=== PATIENT | female | born 1995 | race Caucasian/White ===

== ENCOUNTER 2019-07-24 13:53 | Emergency (ER) | payer OTHER, MEDICAID, SELFPAY ==
[2019-07-24 13:59] VITALS: BP 140/96; PULSE 83; RESP 12; TEMP 36.4; O2SAT 99
--- NOTE | 2019-07-24 14:53 | ED_ITS ---
HPI - Headache <ELIZABETH Kaiser - Last Filed: 07/24/19 21:05> General Chief Complaint: Headache Stated Complaint: migraine/nausea&vomiting/chills x1 days Time Seen by Provider: 07/24/19 14:32 Mode of arrival: Ambulatory Limitations: no limitations History of Present Illness HPI Narrative: 23-year-old female with a history of migraines, presents to the emergency department today complaining of a left sided 8/10 throbbing migraine that started last night. She states she has taken Tylenol and ibuprofen at home, her last dose of medication was last night. She states she has been on migraine medication for management but has discontinued them due to side effects. She has been to the ER 3 times for severe migraines, and states this feels the same. Patient also reports photophobia, nausea, and occasional blurry vision. She denies any chest pain, shortness of breath, nasal congestion, sore throat, ear pain, vomiting, diarrhea, fevers, or neck pain. Related Data Previous Rx's Medication Instructions Recorded metoclopramide HCl [Reglan] 10 mg PO DAILY PRN #5 tab 07/24/19 Allergies Allergy/AdvReac Type Severity Reaction Status Date / Time ketorolac [From Toradol] AdvReac Unknown Verified 07/24/19 14:02 Review of Systems <ELIZABETH Kaiser - Last Filed: 07/24/19 21:05> Review of Systems Narrative: REVIEW OF SYSTEMS: GENERAL: Denies fever or chills. HENT: Patient reports headache, see HPI. EYES: No loss of vision, double vision, eye pain, or irritation. Patient reports photophobia, see HPI. CARDIOVASCULAR: No chest pain or syncope. RESPIRATORY: No shortness of breath or cough. GASTROINTESTINAL: No nausea, vomiting, diarrhea, or constipation. GENITOURINARY: No flank pain or dysuria. MUSCULOSKELETAL: No pain, weakness, or deformities. INTEGUMENTARY: No rash, lesions, or pruritus. NEURO: No numbness, tingling, memory loss, or confusion. PSYCH: No behavior or mood changes. Patient History <ELIZABETH Kaiser - Last Filed: 07/24/19 21:05> Medical/Surgical History Medical History Migraine (Acute) Social History Smoking Status: Former smoker Family/Social History Social History Smoking Status: Former smoker alcohol intake frequency: 0-2 drinks per day Substance Use Type: marijuana Exam <ELIZABETH Kaiser - Last Filed: 07/24/19 21:05> Initial Vital Signs Initial Vital Signs: Vital Signs Temperature 97.6 F 07/24/19 13:59 Pulse Rate 83 07/24/19 13:59 Respiratory Rate 12 07/24/19 13:59 Blood Pressure 140/96 H 07/24/19 13:59 Pulse Oximetry 99 07/24/19 13:59 PHYSICAL EXAMINATION: GENERAL: Well groomed, alert, and cooperative. Answers questions promptly and appropriately. Vital signs noted. HENT: Normocephalic, atraumatic. Ear canals patent. Oral mucosa is pink and moist. EYES: PERRLA, EOMIs, Conjunctiva pink, sclera white, no periorbital swelling. Patient withdrawals from like, indicating photophobia. CHEST: Normal to inspection and without deformities. CARDIOVASCULAR: S1 and S2 sounds normal. Regular rate and rhythm, no murmurs, clicks, or bruits. No pedal edema. RESPIRATORY: Normal respiratory rate, trachea midline, airway patent. No stridor, nasal flaring or accessory muscle use. Lungs are clear in all wang without wheeze, rhonchi, or crackles. GASTROINTESTINAL: Bowel sounds normoactive. Abdomen is soft and non-tender. No organomegaly. MUSCULOSKELETAL: Normal gait and coordination. Equal tone and mass bilaterally. EXTREMITIES: CMS intact. Moves all extremities. SKIN: Warm, dry, soft, appropriate color for ethnicity. No lesions, rashes, or wounds. NEURO: Alert and Oriented X 3. CN III-XIII grossly intact. Good coordination. No ataxia, or sensory deficits, or cognitive issues. PSYCH: Appropriate affect and mood. <Dale Otoole DO - Last Filed: 07/25/19 06:59> Initial Vital Signs Initial Vital Signs: Vital Signs Temperature 97.6 F 07/24/19 13:59 Pulse Rate 83 07/24/19 13:59 Respiratory Rate 12 07/24/19 13:59 Blood Pressure 140/96 H 07/24/19 13:59 Pulse Oximetry 99 07/24/19 13:59 Course <ELIZABETH Kaiser - Last Filed: 07/24/19 21:05> Course Course Narrative: Patient was given Toradol per request, patient states she feels ?hit by a bus ?when she gets Toradol but states it helps her headache and she would like a dose. She denies any hives or throat swelling with administration of Toradol. After Toradol and Reglan, patient states she was feeling much better and would like to go home. She was seen up walking around the room without significant signs of pain. Orders Ordered: Discontinued Medications Ketorolac Tromethamine (Toradol) 30 mg IM NOW ONE Stop: 07/24/19 14:54 Last Admin: 07/24/19 15:06 Dose: 30 mg Documented by: MULUGETA Metoclopramide HCl (Reglan) 10 mg PO NOW ONE Stop: 07/24/19 14:54 Last Admin: 07/24/19 15:06 Dose: 10 mg Documented by: MULUGETA Vital Signs Vital signs: Vital Signs - 8 hr 07/24/19 13:59 07/24/19 15:40 07/24/19 16:11 Temperature 97.6 F Pulse Rate 83 72 77 Respiratory Rate 12 18 16 Blood Pressure 140/96 H 126/81 Blood Pressure [Left Wrist] 132/91 H Pulse Oximetry 99 99 97 <Dale Otoole DO - Last Filed: 07/25/19 06:59> Orders Ordered: Discontinued Medications Ketorolac Tromethamine (Toradol) 30 mg IM NOW ONE Stop: 07/24/19 14:54 Last Admin: 07/24/19 15:06 Dose: 30 mg Documented by: MULUGETA Metoclopramide HCl (Reglan) 10 mg PO NOW ONE Stop: 07/24/19 14:54 Last Admin: 07/24/19 15:06 Dose: 10 mg Documented by: MULUGETA Vital Signs Vital signs: Vital Signs - 8 hr 07/24/19 13:59 07/24/19 15:40 07/24/19 16:11 Temperature 97.6 F Pulse Rate 83 72 77 Respiratory Rate 12 18 16 Blood Pressure 140/96 H 126/81 Blood Pressure [Left Wrist] 132/91 H Pulse Oximetry 99 99 97 MDM - Headache <ELIZABETH Kaiser - Last Filed: 07/24/19 21:05> Medical Records Attestation: I reviewed the patient's medical records. Lab Data Attestation: I reviewed the patient's lab results. MDM Narrative Medical decision making narrative: Exam and history consistent with migraine (patient has a history of migraines, symptoms resolve with administration of me dication, she exhibits photophobia and phonophobia). Less likely cranial hemorrhage or brain tumor due to resolution of symptoms, normal neurological exam, and history of migraines. Patient was encouraged to follow up with her primary care provider in the next few weeks for discussion of migraine management. Strict return precautions were given. Discharge Plan Departure Patient Disposition: Home Clinical Impression: Headache Qualifiers: Headache type: unspecified Headache chronicity pattern: acute headache Intractability: not intractable Qualified Code(s): R51 - Headache Discharge Date/Time: 07/24/19 16:13 Instructions: DI for Headache Activity Restrictions/Additional Instructions: Thank you for entrusting me with your care today. As discussed, please follow up with your primary care provider for further treatment and management of your migraines. I have given you a prescription for Reglan, this can help nausea as well as her headaches. You may take Benadryl with this if needed. Return emergency department if you develop slurred speech, chest pain, shortness of breath, syncope, or other new or worsening symptoms. Prescriptions: New metoclopramide HCl [Reglan] 10 mg tablet 10 mg PO DAILY PRN (Reason: nausea and vomiting) Qty: 5 RF: 0 <Dale Otoole DO - Last Filed: 07/25/19 06:59> Sign Out Provider Sign Out Attestation: I was available for consultation during this patient's emergency department visit. This chart is signed by myself for administrative purposes only. I did not have direct contact with this patient during this visit. They were seen independently by the APC.
[2019-07-24] MEDS: KETOROLAC 60 MG/2 ML VIAL 30 MG IM (15:06)
[2019-07-24] MEDS: METOCLOPRAMIDE HCL 10 MG TABLET PO (15:06)
[2019-07-24 15:40] VITALS: BP 132/91; PULSE 72; RESP 18; O2SAT 99
[2019-07-24 16:11] VITALS: BP 126/81; PULSE 77; RESP 16; O2SAT 97
== END 2019-07-24 16:13 | disposition home or self-care (01) ==
PROVIDERS: Emergency Provider Nurse Practitioner
DX: R51 Headache (principal)
CPT/HCPCS: 96372; 99282; 99283; J1885

== ENCOUNTER → 2021-01-11 17:28 | Outpatient (CLI) | payer OTHER, MEDICAID, SELFPAY | PROVIDERS: Visit Provider Physician Assistant | DX: M79.646 Pain in unspecified finger(s) (principal) | CPT/HCPCS: 87070; 87075; 87205 ==

== ENCOUNTER 2021-05-23 11:18 | Emergency (ER) | payer OTHER, MEDICAID, SELFPAY ==
[2021-05-23 11:22] VITALS: BP 149/100; PULSE 104; RESP 18; TEMP 36.7; O2SAT 98; BMI 49.6
[2021-05-23 11:50] LABS: COVID19 -Nasal RAPID Negative (Negative)
--- NOTE | 2021-05-23 12:04 | ED.RECABL ---
HPI - Recheck/Abnormal Lab/Rx General Chief Complaint: Recheck/Abnormal Lab/Rx Stated Complaint: covid exposure, would like to be tested Time Seen by Provider: 05/23/21 11:32 Source: patient Mode of arrival: Ambulatory Limitations: no limitations History of Present Illness HPI narrative: Patient is a 25-year-old female. Is un immunized. Had an exposure to COVID 3 days ago. Has no symptoms. His here for testing. Related Data Previous Rx's Medication Instructions Recorded metoclopramide HCl 10 mg tablet 10 mg PO DAILY PRN #5 tab 07/24/19 (Reglan) Allergies Allergy/AdvReac Type Severity Reaction Status Date / Time ketorolac [From Toradol] AdvReac Unknown Verified 01/11/21 17:25 Review of Systems Constitutional Comments: No headache Cardiovascular Comments: No chest pain Respiratory Comments: No shortness of breath Gastrointestinal Comments: No GI symptoms Integumentary/Breasts Comments: No rashes Hematologic/Lymphatic On Anticoagulants: No Patient History Medical History Migraine Social History Smoking Status: Former smoker Smoking Status: Former smoker alcohol intake frequency: 0-2 drinks per day Substance Use Type: marijuana Exam Initial Vital Signs Initial Vital Signs: Vital Signs Temperature 98.1 F 05/23/21 11:22 Pulse Rate 104 H 05/23/21 11:22 Respiratory Rate 18 05/23/21 11:22 Blood Pressure 149/100 H 05/23/21 11:22 Pulse Oximetry 98 05/23/21 11:22 Const General: cooperative and healthy appearing Resp Effort & Inspection: normal respiratory effort Cardio Rate: regular rate Skin Lesions: no lesions Neuro General: patient alert, patient awake and moves all extremities Extrem General: normal to inspection Psych Appearance: grossly normal Course Orders Ordered: ED Orders 05/23/21 11:29 COVID19 -Nasal swab/Pre-Proc Stat Vital Signs Vital signs: Vital Signs - 8 hr 05/23/21 11:22 Temperature 98.1 F Pulse Rate 104 H Respiratory Rate 18 Blood Pressure 149/100 H Pulse Oximetry 98 MDM - Recheck/Abnormal Lab/Rx Lab Data Labs: Lab Results 05/23/21 Range/Units 11:29 SARS-CoV-2 (PCR) Negative (Negative) MDM Narrative Medical decision making narrative: Patient's COVID-19 test today was negative. I did inform her that this could potentially be a false negative given the fact that her exposure was just 2-3 days ago. She was informed that she needed to quarantine herself for the next 14 days. She was given return precautions and follow-up instructions. She expressed understanding and agreement. Discharge Plan Departure Patient Disposition: Home Clinical Impression: Encounter for laboratory testing for COVID-19 virus Instructions: About the COVID-19 Vaccine, Can COVID-19 be prevented? Activity Restrictions/Additional Instructions: Your COVID-19 test was negative however since your exposure was just 2 days ago your still to quarantine yourself for the next 14 days. Contact your primary doctor for follow-up. Return to the emergency department for any new or worsening symptoms Prescriptions: No Action metoclopramide HCl [Reglan] 10 mg tablet 10 mg PO DAILY PRN (Reason: nausea and vomiting) Qty: 5 RF: 0 Referrals: Miscellaneous,Doctor, MD [Primary Care Provider] -
== END 2021-05-23 12:12 | disposition home or self-care (01) ==
PROVIDERS: Emergency Provider Emergency Medicine
DX: Z20.822 Contact with and (suspected) exposure to COVID-19 (principal)
CPT/HCPCS: 87635; 99281; C9803

== ENCOUNTER 2021-06-15 21:05 | Emergency (ER) | payer OTHER, MEDICAID, SELFPAY ==
[2021-06-15 21:38] VITALS: BP 140/93; PULSE 98; RESP 17; TEMP 36.8; O2SAT 98; BMI 51.2
[2021-06-15 22:06] LABS: COVID19 -Nasal RAPID Negative (Negative)
--- NOTE | 2021-06-16 06:01 | ED_ITS ---
HPI - Recheck/Abnormal Lab/Rx General Chief Complaint: Recheck/Abnormal Lab/Rx Stated Complaint: needs covid test to come back to work Time Seen by Provider: 06/15/21 21:08 Source: patient Mode of arrival: Ambulatory Limitations: no limitations History of Present Illness HPI narrative: 25-year-old female former smoker with noncontributory medical history presents requesting a COVID test. She states that she had some nausea and vomiting yesterday which lasted about 12 hours and has since resolved. She denies any headache or blurred vision. She has no fever or chills. She denies runny nose, sore throat or cough. She denies any exposure to persons known or suspected to have COVID. She was told by her employer that she must have a negative COVID test prior to returning to work Related Data Previous Rx's Medication Instructions Recorded metoclopramide HCl 10 mg tablet 10 mg PO DAILY PRN #5 tab 07/24/19 (Reglan) Allergies Allergy/AdvReac Type Severity Reaction Status Date / Time ketorolac [From Toradol] AdvReac Unknown Verified 01/11/21 17:25 Review of Systems Review of Systems Narrative: GENERAL: Denies chills, fatigue, malaise, fever, sweats. HEENT: Denies sinus pain, ear pain, sore throat, difficulty swallowing, dizziness. RESPIRATORY: Denies dyspnea, cough, wheezing, hemoptysis, sputum. CARDIOVASCULAR: Denies chest pain, palpitations, orthopnea, edema, GASTROINTESTINAL: See HPI : Denies dysuria, frequency, incontinence, hematuria, urinary retention. MUSCULOSKELETAL: denies weakness, joint pain, or bony pain SKIN: Denies rash, skin lesions, or other NEUROLOGIC: Denies weakness, headache, numbness, change in speech, confusion, seizures, incoordination. PSYCHIATRIC: No concerning psychosocial issues. 12 point review of systems is negative except for those stated above Patient History Medical History Migraine Social History Smoking Status: Former smoker Smoking Status: Former smoker alcohol intake frequency: 0-2 drinks per day Substance Use Type: marijuana Exam Narrative Exam Narrative: GEN: AOx3 and in mild distress EYES: Pupils are equal, round, and reactive to light and accommodation. Extraoccular muscles are intact bilaterally. There is no subconjunctival h emorrhage or exudate. CHEST: Lungs are clear to auscultation bilaterally and free of wheezes, rales, or rhonchi. Heart rate is regular rhythm, there are no murmurs, clicks, rubs, or gallops. There is no chest wall tenderness. ABD: Abdomen is soft and nontender. There is no guarding or rebound. Bowel sounds are normal in all 4 quadrants. There is no mass or organomegaly. EXT: Full painless ROM of all extremities with no loss of sensation or strength. SKIN: Warm, pink, and dry. No erythema or rash Initial Vital Signs Initial Vital Signs: Vital Signs Temperature 98.3 F 06/15/21 21:38 Pulse Rate 98 H 06/15/21 21:38 Respiratory Rate 17 06/15/21 21:38 Blood Pressure 140/93 H 06/15/21 21:38 Pulse Oximetry 98 06/15/21 21:38 Course Orders Ordered: ED Orders 06/15/21 21:45 COVID19 -Nasal swab/Pre-Proc Stat MDM - Recheck/Abnormal Lab/Rx Lab Data Labs: Lab Results 06/15/21 Range/Units 21:45 SARS-CoV-2 (PCR) Negative (Negative) MDM Narrative Medical decision making narrative: Patient with very reassuring history and physical exam. Resting comfortably and without current complaint. She had about 12 hours of nausea and vomiting was is since resolved. She denies recent antibiotics, exposure to bad food or ill persons. Patient needed negative COVID test for return to work. Return precautions given and questions answered to her apparent satisfaction Discharge Plan Departure Patient Disposition: Home Clinical Impression: Nausea & vomiting Qualifiers: Vomiting type: unspecified Vomiting Intractability: non-intractable Qualified Code(s): R11.2 - Nausea with vomiting, unspecified Instructions: Nausea and Vomiting-Adult Activity Restrictions/Additional Instructions: *You have been diagnosed with [nausea vomiting, resolved, negative COVID test] *What to do: *Please continue to take your regular medications as directed. [ ] New medication prescriptions sent to your pharmacy: [ ] [ ] New medication written as a paper prescription [x ] No new medications given *Please follow up with your primary care provider in 2-3 days, call for an appointment. Let them know you were seen in the Emergency Department and that we ask that you be seen in follow up. We will electronically transmit a record of today's note if your PCP is in our system *If you do not have a primary care provider please contact the [facility] Resource line at [phone]. They will ask some questions about your medical history and help get you set up with a doctor in the community. *Return to Emergency Department if you should have any new, worsening or concerning symptoms, such as [fever greater than 101 F, shaking chills, worsening pain, persistent vomiting or other bothersome symptoms] Prescriptions: No Action metoclopramide HCl [Reglan] 10 mg tablet 10 mg PO DAILY PRN (Reason: nausea and vomiting) Qty: 5 RF: 0 Referrals: Miscellaneous,Doctor, MD [Primary Care Provider] -
== END 2021-06-15 23:23 | disposition home or self-care (01) ==
PROVIDERS: Emergency Provider Emergency Medicine
DX: R11.2 Nausea with vomiting, unspecified (principal); Z20.822 Contact with and (suspected) exposure to COVID-19
CPT/HCPCS: 87635; 99281; 99282; C9803

== ENCOUNTER 2021-11-27 12:31 | Emergency (ER) | payer OTHER, MEDICAID, SELFPAY ==
[2021-11-27 12:52] VITALS: BP 140/75; PULSE 84; RESP 18; TEMP 36.2; O2SAT 98; BMI 49.8
--- NOTE | 2021-11-27 12:57 | DI.RAD.S_ITS ---
PROCEDURE: XR SHOULDER RT MIN 2V INDICATIONS: shoulder pain TECHNIQUE: 3 views of the shoulder were acquired. COMPARISON: None. FINDINGS: Bones: No fractures or dislocations. No suspicious bony lesions. Visualized ribs appear intact. Soft tissues: No suspicious soft tissue calcifications. IMPRESSION: No acute right shoulder fracture or dislocation. No gross soft tissue abnormalities. Dictated by: Stephen Vasquez M.D. on 11/27/2021 at 13:30 Approved by: Stephen Vasquez M.D. on 11/27/2021 at 13:31
[2021-11-27] MEDS: methocarbamoL 500 MG TABLET PO (16:29)
[2021-11-27] MEDS: HYDROCODONE/ACET 5/325 TABLET 1 TAB PO (16:29)
[2021-11-27] MEDS: ACETAMINOPHEN 325 MG TABLET 650 MG PO (16:29)
[2021-11-27] MEDS: LIDOCAINE PATCH 1 EACH ADH..PATCH TOP (16:30)
--- NOTE | 2021-11-27 16:47 | ED_ITS ---
HPI - Extremity Injury (Upper) <ELIZABETH Canales - Last Filed: 11/27/21 17:04> General Chief Complaint: Extremity Injury, Upper Stated Complaint: Shoulder pain since Thursday Time Seen by Provider: 11/27/21 15:58 Source: patient Mode of arrival: Ambulatory History of Present Illness HPI narrative: 26-year-old female with no past medical history other than obesity presents to the emergency department complaining of right anterior shoulder pain after she picked up in through her 13 lb dog 3 days ago. She states that her pain is severe in her right shoulder, and it radiates down her arm into her fingertips. She denies any trauma or fall, states pain is worse with abduction and her range of motion with abduction is limited due to pain. Patient denies taking any pain medication for this so far. She states is causing her to not sleep, she is holding her arm, complaining of the pain. She denies of any rash, itchiness, discoloration, swelling, for weakness. Related Data Previous Rx's Medication Instructions Recorded metoclopramide HCl 10 mg tablet 10 mg PO DAILY PRN #5 tab 07/24/19 (Reglan) lidocaine 5 % topical patch 1 patch TOPICAL DAILY PRN #15 ea 11/27/21 methocarbamol 500 mg tablet 500 mg PO TID PRN #20 tab 11/27/21 naproxen 250 mg tablet 250 mg PO BID PRN #20 tab 11/27/21 Allergies Allergy/AdvReac Type Severity Reaction Status Date / Time ketorolac [From Toradol] AdvReac Unknown Verified 01/11/21 17:25 Review of Systems <ELIZABETH Canales - Last Filed: 11/27/21 17:04> Review of Systems Narrative: General: denies fever, chills, malaise, sweats, fatigue Head/Neck: denies headache, neck pain, dizziness Eyes: denies visual changes, eye pain Cardio: denies chest pain, palpitations, edema Respiratory: denies dyspnea, cough, orthopnea GI: denies abdominal pain, nausea, vomiting, or diarrhea : denies dysuria, hematuria, urinary retention, frequency or incontinence MSK: Complains of right shoulder pain, denies other joint pain, muscle weakness Skin: denies rash, itching, skin lesions or other Neuro: denies numbness, tingling Patient History <ELIZABETH Canales - Last Filed: 11/27/21 17:04> Medical History (Updated 11/27/21 @ 16:57 by ELIZABETH Canales) Migraine Social History Smoking Status: Former smoker Smoking Status: Former smoker alcohol intake frequency: 0-2 drinks per day Substance Use Type: marijuana Exam <ELIZABETH Canales - Last Filed: 11/27/21 17:04> Narrative Exam Narrative: Independently reviewed vitals signs and nursing notes. General: Cooperative, comfortable, in no acute distress, well developed and well groomed Head/Neck: Normal visual inspection and supple, atraumatic, no JVD or lymphadenopathy. Normal facial exam Eyes: Pupils equal round and reactive, EOMI, conjunctiva normal, no scleral icterus or injections Nose: External nose normal, nares patent, no rhinorrhea, without purulent drainage Mouth/Throat: uvula midline, moist mucus membranes Cardio: Regular rate and rhythm, no peripheral edema, warm extremities Respiratory: Normal respiratory effort, able to speak in complete sentences without audible wheezing, stridor, or rales. No retractions. GI: Abdomen soft, obese, nontender to palpation x4 quadrants, nondistended, no masses or exquisite tenderness with exam, no flank tenderness MSK: Moves all extremities, neurovascularly intact, tenderness to palpation over right anterior shoulder suspect anterior rotator cuff injury, pain is worse with abduction no pain with adduction, internal or external rotation, no posterior shoulder pain. Skin: Normal capillary refill, no rash Neuro: Normal speech and cognition, normal gait, A&O x3, tone normal, moves all extremities Psych: Mental status is grossly normal, speech is clear, congruent mood, normal affect Initial Vital Signs Initial Vital Signs: Vital Signs Temperature 97.1 F L 11/27/21 12:52 Pulse Rate 84 11/27/21 12:52 Respiratory Rate 18 11/27/21 12:52 Blood Pressure 140/75 11/27/21 12:52 Pulse Oximetry 98 11/27/21 12:52 <Anam Rand DO - Last Filed: 12/01/21 18:50> Initial Vital Signs Initial Vital Signs: Vital Signs Temperature 97.1 F L 02/16/22 12:52 Pulse Rate 84 11/27/21 12:52 Respiratory Rate 18 11/27/21 12:52 Blood Pressure 140/75 11/27/21 12:52 Pulse Oximetry 98 11/27/21 12:52 Course <ELIZABETH Canales - Last Filed: 11/27/21 17:04> Orders Ordered: Discontinued Medications Acetaminophen (Acetaminophen 325 Mg Tablet) 650 mg PO NOW ONE Stop: 11/27/21 16:17 Last Admin: 11/27/21 16:29 Dose: 650 mg Documented by: PHILOMENA Hydrocodone Bitart/Acetaminophen (Hydrocodone/Acet 5/325 Tablet) 1 tab PO NOW ONE Stop: 11/27/21 16:17 Last Admin: 11/27/21 16:29 Dose: 1 tab Documented by: PHILOMENA Ketorolac Tromethamine (Ketorolac 30 Mg/Ml Vial) 15 mg IM NOW ONE Stop: 11/27/21 16:17 Last Admin: 11/27/21 16:28 Dose: Not Given Documented by: PHILOMENA Lidocaine (Lidocaine Patch 1 Each Adh..Patch) 1 each TOP NOW ONE Stop: 11/27/21 16:17 Last Admin: 11/27/21 16:30 Dose: 1 each Documented by: PHILOMENA Methocarbamol (Methocarbamol 500 Mg Tablet) 500 mg PO NOW ONE Stop: 11/27/21 16:17 Last Admin: 11/27/21 16:29 Dose: 500 mg Documented by: PHILOMENA Vital Signs Vital signs: Vital Signs - 8 hr 11/27/21 12:52 Temperature 97.1 F L Pulse Rate 84 Respiratory Rate 18 Blood Pressure 140/75 Pulse Oximetry 98 <Anam Rand DO - Last Filed: 12/01/21 18:50> Orders Ordered: Discontinued Medications Acetaminophen (Acetaminophen 325 Mg Tablet) 650 mg PO NOW ONE Stop: 11/27/21 16:17 Last Admin: 11/27/21 16:29 Dose: 650 mg Documented by: PHILOMENA Hydrocodone Bitart/Acetaminophen (Hydrocodone/Acet 5/325 Tablet) 1 tab PO NOW ONE Stop: 11/27/21 16:17 Last Admin: 11/27/21 16:29 Dose: 1 tab Documented by: PHILOMENA Ketorolac Tromethamine (Ketorolac 30 Mg/Ml Vial) 15 mg IM NOW ONE Stop: 11/27/21 16:17 Last Admin: 11/27/21 16:28 Dose: Not Given Documented by: PHILOMENA Lidocaine (Lidocaine Patch 1 Each Adh..Patch) 1 each TOP NOW ONE Stop: 11/27/21 16:17 Last Admin: 11/27/21 16:30 Dose: 1 each Documented by: PHILOMENA Methocarbamol (Methocarbamol 500 Mg Tablet) 500 mg PO NOW ONE Stop: 11/27/21 16:17 Last Admin: 11/27/21 16:29 Dose: 500 mg Documented by: PHILOMENA Vital Signs Vital signs: Vital Signs - 8 hr 11/27/21 12:52 Temperature 97.1 F L Pulse Rate 84 Respiratory Rate 18 Blood Pressure 140/75 Pulse Oximetry 98 MDM - Extremity Injury (Upper) <ELIZABETH Canales - Last Filed: 11/27/21 17:04> Imaging Data Extremity x-ray #1: Radiologist's Impression: PROCEDURE:? XR SHOULDER RT MIN 2V ? INDICATIONS:? shoulder pain ? TECHNIQUE:? 3 views of the shoulder were acquired.? ? COMPARISON:? None. ? FINDINGS:? ? Bones:? No fractures or dislocations.? No suspicious bony lesions.? Visualized ribs appear intact.? ? Soft tissues:? No suspicious soft tissue calcifications.? ? IMPRESSION:? No acute right shoulder fracture or dislocation.? No gross soft tissue abnormalities. ? ? Dictated by: Stephen Vasquez M.D. on 11/27/2021 at 13:30 ? ? Approved by: Stephen Vasquez M.D. on 11/27/2021 at 13:31 ? MDM Narrative Medical decision making narrative: 26-year-old female presents the emergency department with complaint of right shoulder pain with abduction which started 3 days ago after she picked up her 13 lb dog and threw it off the couch. Patient was given lidocaine, Robaxin, Toradol emergency department with moderate relief in her symptoms. She has had in his sling, will follow-up with her primary care provider for physical therapy and advanced imaging. There is no gross dislocation, x-ray was negative for fracture, no gross soft tissue abnormalities. I suspect anterior rotator cuff injury/tendinitis, but could also be AC separation although less likely as there has been no trauma, fibromyalgia, frozen shoulder, arthritis, course of acromial bursitis. CMS is Intact, no skin discoloration or weakness, no passive ROM abnormalities other than limited due to pain. Patient is appropriate and chloe nable to discharge home. Vital signs are stable on repeat examination is unremarkable. Patient has been informed of results. Patient has been given strict return to ER precautions for any new or worsening symptoms. Patient understands to follow up closely with outpatient providers as instructed. Patient understands plan and agrees to discharge home. All questions and concerns answered at this time. Discharge Plan Departure Patient Disposition: Home Clinical Impression: Sprain of left shoulder Qualifiers: Encounter type: initial encounter Shoulder sprain type: rotator cuff capsule Qualified Code(s): S43.422A - Sprain of left rotator cuff capsule, initial encounter Instructions: DI for Shoulder Sprain Activity Restrictions/Additional Instructions: *You have been diagnosed with right shoulder pain which is most likely a sprain or a partial anterior rotator cuff tear. Please follow-up with your primary care provider for a referral for physical therapy and outpatient imaging. Your x-ray was negative for fracture, or joint space abnormality. Please take Tylenol and naproxen as needed for your pain. Please do not take any naproxen tonight. Please wear a lidocaine patch and change it every 12 hours as needed for your pain. Keep your arm in your sling when you are up and about so that does not hang and cause more pain. Please follow-up with orthopedics if you have tried physical therapy and have a MRI of your shoulder completed. Please see your primary care provider for orders for these things. I hope you feel better soon. *What to do: *Please continue to take your regular medications as directed. [ x] New medication prescriptions sent to your pharmacy: [[facility]] [ ] New medication written as a paper prescription [ ] No new medications given *Please follow up with your primary care provider in 2-3 days, call for an appointment. Let them know you were seen in the Emergency Department and that we ask that you be seen in follow up. We will electronically transmit a record of today's note if your PCP is in our system *If you do not have a primary care provider please contact the [facility] Resource line at [phone]. They will ask some questions about your medical history and help get you set up with a doctor in the community. *Return to Emergency Department if you should have any new, worsening or co ncerning symptoms, such as [fever greater than 101F, chills, worsening pain, persistent vomiting or other bothersome symptoms] Prescriptions: New methocarbamol 500 mg tablet 500 mg PO TID PRN (Reason: muscle spasm) Qty: 20 0RF naproxen 250 mg tablet 250 mg PO BID PRN (Reason: pain) Qty: 20 0RF lidocaine 5 % adhesive patch,medicated 1 patch topical DAILY PRN (Reason: pain) Qty: 15 0RF Rx Instructions: leave on most painful area for up to 12 hrs No Action metoclopramide HCl [Reglan] 10 mg tablet 10 mg PO DAILY PRN (Reason: nausea and vomiting) Qty: 5 0RF Rx Instructions: administer 30 minutes before meals Referrals: Miscellaneous,Doctor, MD [Primary Care Provider] - Lyubov Sawant ARNP [Non-Staff] - 3-5 days <Anam Rand DO - Last Filed: 12/01/21 18:50> Cosign ED Attending Cosignature Attestation: I was immediately available in the department for consultation. This documentation has been reviewed and I agree with assessment and plan. Supervised by Anam Rand DO
== END 2021-11-27 17:44 | disposition home or self-care (01) ==
PROVIDERS: Emergency Provider Nurse Practitioner Critical Care Medicine
DX: S43.422A Sprain of left rotator cuff capsule, initial encounter (principal); X50.0XXA Overexertion from strenuous movement or load, initial encounter
CPT/HCPCS: 73030; 99283; 99284

== ENCOUNTER 2023-01-02 20:11 | Emergency (ER) | payer OTHER, MEDICAID, SELFPAY ==
[2023-01-02 20:15] VITALS: BP 135/97; PULSE 66; RESP 16; TEMP 36.6; O2SAT 98; BMI 53.1
--- NOTE | 2023-01-02 20:26 | ED_ITS ---
HPI - General Adult General Chief complaint: Allergic Reaction Stated complaint: Rash on face from medication Time Seen by Provider: 01/02/23 20:25 Source: patient Mode of arrival: Ambulatory History of Present Illness HPI narrative: 27-year-old female with prior mental health diagnoses presents at the request of her primary care provider for evaluation of a mild and significantly improving rash on her upper eyelids and portions of her face. She had been on Lamictal for about 1 week when she started developing the rash and was encouraged to stop. The symptoms were mild to begin and have improved over the past 3 days. She denies any intraoral lesions or sloughing of the skin, she is no trouble swallowing. She denies any facial swelling, difficulty swallowing or breathing. She denies any large fluid-filled blisters or bulla, she has no hives or urticaria. She denies nausea, vomiting, diarrhea, abdominal pain or dysuria Related Data Previous Rx's Medication Instructions Recorded metoclopramide HCl 10 mg tablet 10 mg PO DAILY PRN nausea and 07/24/19 (Reglan) vomiting #5 tabs lidocaine 5 % topical patch 1 patch topical DAILY PRN pain #15 11/27/21 ea methocarbamol 500 mg tablet 500 mg PO TID PRN muscle spasm #20 11/27/21 tabs naproxen 250 mg tablet 250 mg PO BID PRN pain #20 tabs 11/27/21 Allergies Allergy/AdvReac Type Severity Reaction Status Date / Time ketorolac [From Toradol] AdvReac Unknown Verified 01/11/21 17:25 Review of Systems Review of Systems Narrative: GENERAL: Denies chills, fatigue, malaise, fever, sweats. HEENT: See HPI RESPIRATORY: Denies dyspnea, cough, wheezing, hemoptysis, sputum. CARDIOVASCULAR: Denies chest pain, palpitations, orthopnea, edema, GASTROINTESTINAL: Denies nausea, vomiting, abdominal pain, diarrhea, constipation, melena. : Denies dysuria, frequency, incontinence, hematuria, urinary retention. MUSCULOSKELETAL: denies weakness, joint pain, or bony pain SKIN: See HPI NEUROLOGIC: Denies weakness, headache, numbness, change in speech, confusion, seizures, incoordination. PSYCHIATRIC: No concerning psychosocial issues. 12 point review of systems is negative except for those stated above Patient History Medical History Migraine Social History Smoking Status: Former smoker Smoking Status: Former smoker alcohol intake frequency: 0-2 drinks per day Substance Use Type: marijuana Exam Narrative Exam Narrative: GENERAL: [27] year old patient appears stated age. Well-developed patient, in mild distress. HEAD: Atraumatic. Normocephalic. EYES: Pupils equal round and reactive. Extraocular motions intact. No scleral icterus. No injection or drainage. ENT: Nose without bleeding, purulent drainage. Throat without erythema, tonsillar hypertrophy or exudate. Airway patent. No intraoral lesions or mucosal involvement NECK: Trachea midline. Non tender CARDIOVASCULAR: Regular rate and rhythm without murmurs, gallops, or rubs. RESPIRATORY: Clear to auscultation. Breath sounds equal bilaterally. No wheezes, rales, or rhonchi. GASTROINTESTINAL: Abdomen soft, non-tender, nondistended. EXTREMITIES: No edema or joint tenderness. BACK: Nontender without deformity or crepitance. No flank tenderness. NEURO: AOx3. SKIN: Very minimal superficial rash of upper lids, no edema, erythema, induration Initial Vital Signs Initial Vital Signs: Vital Signs Temperature 97.8 F 01/02/23 20:15 Pulse Rate 66 01/02/23 20:15 Respiratory Rate 16 01/02/23 20:15 Blood Pressure 135/97 H 01/02/23 20:15 Pulse Oximetry 98 01/02/23 20:15 Oxygen Delivery Method Room Air 01/02/23 20:15 Course Vital Signs Vital signs: Vital Signs - 8 hr 01/02/23 20:15 Temperature 97.8 F Pulse Rate 66 Respiratory Rate 16 Blood Pressure 135/97 H Pulse Oximetry 98 Oxygen Delivery Method Room Air Medical Decision Making MDM Narrative Medical decision making narrative: CC: 27-year-old female sent for evaluation of rash after starting Lamictal Complicating co-morbidities: Newly started medication Data collected from: Patient Medical records reviewed: Prior notes reviewed in our EMR Differential considered, but not limited to: Mild drug reaction, Sanchez- Magdaleno, toxic epidermal necrolysis versus other Exam documented above, pertinent findings include: Patient alert and oriented, in no distress, no intraoral lesions or mucosal involvement, very minimal if any rash on upper lids, otherwise skin exam absent of abnormal findings, lungs clear and nonlabored, heart rate regular and abdomen soft Discussion: Patient had very minimal rash on her face after starting Lamictal, these symptoms have nearly completely cleared in the 3 days and she stopped the Lamictal. There is no sign of Sanchez-Magdaleno or worse, no widespread symptoms over suggestion of anaphylaxis, no obvious need for antihistamines or other medications. It would seem the reaction she was having was likely related to the Lamictal and has nearly completely resolved after stopping 3 days ago no further treatment or evaluation necessary at this time Disposition: see below, along with detailed discharge instructions that have been reviewed with patient as well as indications for ED re-evaluation and additional outpatient follow up Discharge Plan Departure Patient Disposition: Home Clinical Impression: Adverse reaction to drug Instructions: DI for Adverse Drug Reaction -- Allergic Activity Restrictions/Additional Instructions: *You have been diagnosed with [adverse reaction to medication. As we discussed when you stop taking the medication your symptoms have improved and there is no sign Sanchez-Magdaleno or toxic epidermal necrolysis which are the very serious potential dermatologic reactions to the medication you have stopped. There is no indication at this time of any need for further evaluation intervention] *What to do: *Please continue to take your regular medications as directed. [ ] New medication prescriptions sent to your pharmacy: [ ] [ ] New medication written as a paper prescription [ ] No new medications given *Please follow up with your primary care provider in 2-3 days, call for an appointment. Let them know you were seen in the Emergency Department and that we ask that you be seen in follow up. We will electronically transmit a record of today's note if your PCP is in our system *If you do not have a primary care provider please contact the [facility] Resource line at [phone]. They will ask some questions about your medical history and help get you set up with a doctor in the community. *Return to Emergency Department if you should have any new, worsening or concerning symptoms, such as [fever greater than 101 F, shaking chills, worsening pain, persistent vomiting or other bothersome symptoms] Prescriptions: No Action methocarbamol 500 mg tablet 500 mg PO TID PRN (Reason: muscle spasm) Qty: 20 0RF naproxen 250 mg tablet 250 mg PO BID PRN (Reason: pain) Qty: 20 0RF lidocaine 5 % adhesive patch,medicated 1 patch topical DAILY PRN (Reason: pain) Qty: 15 0RF Rx Instructions: leave on most painful area for up to 12 hrs metoclopramide HCl [Reglan] 10 mg tablet 10 mg PO DAILY PRN (Reason: nausea and vomiting) Qty: 5 0RF Rx Instructions: administer 30 minutes before meals Referrals: Lyubov Sawant ARNP [Primary Care Provider] - Stand Alone Forms: Patient Portal/API
== END 2023-01-02 21:43 | disposition home or self-care (01) ==
PROVIDERS: Emergency Provider Emergency Medicine; PCP Nurse Practitioner Family
DX: R21 Rash and other nonspecific skin eruption (principal); T78.40XA Allergy, unspecified, initial encounter
CPT/HCPCS: 99281

== ENCOUNTER 2023-01-24 07:18 | Emergency (ER) | payer OTHER, MEDICAID, SELFPAY ==
[2023-01-24 07:23] VITALS: O2SAT 98
[2023-01-24 07:24] VITALS: BP 150/103; PULSE 77; O2SAT 98
--- NOTE | 2023-01-24 07:29 | ED.GIBLEED ---
HPI - GI Bleed General Chief complaint: GI Bleed Stated complaint: bleeding from rectum Time Seen by Provider: 01/24/23 07:28 History of Present Illness HPI Narrative: 27-year-old female nonsmoker presents for evaluation bright red blood from the rectum a few days ago, sometimes with stool sometimes not. She states that she otherwise feels fine and has no dizziness, weakness or lightheadedness. No chest pain or shortness of breath. She has no abdominal pain, constipation or diarrhea. She does state that she had had some cramping in her lower abdomen and thought maybe she was going to start her period but it is very subtle and there is not much to it. She denies any fever or chills. She takes no blood thinners. She denies any urinary complaints such as dysuria, frequency or urgency. Related Data Home Medications Medication Instructions Recorded Confirmed albuterol sulfate 90 mcg/actuation inhalation 01/24/23 aerosol inhaler fluticasone propionate 220 inhalation 01/24/23 mcg/actuation HFA aerosol inhaler gabapentin 300 mg capsule mg 01/24/23 hydroxyzine pamoate 50 mg capsule mg 01/24/23 lamotrigine 100 mg tablet mg 01/24/23 lamotrigine 25 mg tablet mg 01/24/23 losartan 25 mg tablet mg 01/24/23 methylphenidate HCl 10 mg tablet mg 01/24/23 rizatriptan 10 mg tablet mg 01/24/23 Allergies Allergy/AdvReac Type Severity Reaction Status Date / Time ketorolac [From Toradol] AdvReac Unknown Back Pain Verified 01/24/23 07:33 red dye AdvReac Verified 01/24/23 07:33 Review of Systems Review of Systems Narrative: GENERAL: Denies chills, fatigue, malaise, fever, sweats. HEENT: Denies sinus pain, ear pain, sore throat, difficulty swallowing, dizziness. RESPIRATORY: Denies dyspnea, cough, wheezing, hemoptysis, sputum. CARDIOVASCULAR: Denies chest pain, palpitations, orthopnea, edema, GASTROINTESTINAL: See HPI : Denies dysuria, frequency, incontinence, hematuria, urinary retention. MUSCULOSKELETAL: denies weakness, joint pain, or bony pain SKIN: Denies rash, skin lesions, or other NEUROLOGIC: Denies weakness, headache, numbness, change in speech, confusion, seizures, incoordination. PSYCHIATRIC: No concerning psychosocial issues. 12 point review of systems is negative except for those stated above Patient History Medical History (Updated 01/24/23 @ 08:28 by Anam Rand DO) Migraine Social History Smoking Status: Former smoker Smoking Status: Former smoker alcohol intake frequency: 0-2 drinks per day Substance Use Type: marijuana Exam Narrative Exam Narrative: GENERAL: [27] year old patient appears stated age. Well-developed patient, in mild distress. HEAD: Atraumatic. Normocephalic. EYES: Pupils equal round and reactive. Extraocular motions intact. No scleral icterus. No injection or drainage. ENT: Nose without bleeding, purulent drainage. Throat without erythema, tonsillar hypertrophy or exudate. Airway patent. NECK: Trachea midline. Non tender CARDIOVASCULAR: Regular rate and rhythm without murmurs, gallops, or rubs. RESPIRATORY: Clear to auscultation. Breath sounds equal bilaterally. No wheezes, rales, or rhonchi. GASTROINTESTINAL: Abdomen soft, non-tender, nondistended. EXTREMITIES: No edema or joint tenderness. BACK: Nontender without deformity or crepitance. No flank tenderness. NEURO: AOx3. SKIN: No rash or erythema of visible areas Initial Vital Signs Initial Vital Signs: Vital Signs Temperature 98.2 F 01/24/23 07:30 Pulse Rate 88 01/24/23 07:30 Respiratory Rate 17 01/24/23 07:30 Blood Pressure 150/103 H 01/24/23 07:30 Pulse Oximetry 98 01/24/23 07:30 Oxygen Delivery Method Room Air 01/24/23 07:30 Course Orders Ordered: ED Orders 01/24/23 07:30 Complete Blood Count AUTO DIFF Stat Comprehensive Metabolic Panel Stat PTT Partial Thromboplastin Jaylen Stat Prothrombin Time INR Stat Vital Signs Vital signs: Vital Signs - 8 hr 01/24/23 07:30 Temperature 98.2 F Pulse Rate 88 Respiratory Rate 17 Blood Pressure 150/103 H Pulse Oximetry 98 Oxygen Delivery Method Room Air MDM - GI Bleed Lab Data 01/24/23 07:30 01/24/23 07:30 Labs: Lab Results 01/24/23 01/24/23 01/24/23 Range/Units 07:30 07:30 07:30 WBC 8.7 (4.5-11.0) X10^3/uL RBC 5.16 (4.0-5.2) X10^6/uL Hgb 15.7 (12.0-16.0) g/dL Hct 44.8 (36-46) % MCV 86.9 (80-100) fL MCH 30.4 (26-34) PG MCHC 34.9 (30-36) % RDW 13.3 (11.6-14.8) % Plt Count 199 (150-400) X10^3/uL Neut % (Auto) 44.2 L (50-75) % Lymph % (Auto) 41.6 H (25-40) % Cuming % (Auto) 4.6 (3-14) % Eos % (Auto) 8.4 H (2-4) % Baso % (Auto) 1.2 (0-2) % Neut # (Auto) 3900 (7534-7487) /uL Lymph # (Auto) 3600 (2412-6337) /uL Cuming # (Auto) 400 (0-900) /uL Eos # (Auto) 700 H (0-450) /uL Baso # (Auto) 100 (0-100) /uL PT 12.0 (10.1-12.7) SECONDS INR 1.0 (0.9-1.3) APTT 32 (26-36) SECONDS Sodium 138 (137-145) mmol/L Potassium 3.8 (3.4-5.1) mmol/L Chloride 105 (98-107) mmol/L Carbon Dioxide 26 (22-32) mmol/L BUN 13 (7-17) mg/dL Creatinine 0.77 (0.52-1.04) mg/dL Estimated GFR > 60 (>60) mL/min BUN/Creatinine Ratio 16.9 (6-22) Glucose 94 (70-100) mg/dL Calcium 9.0 (8.4-10.2) mg/dL Total Bilirubin 0.9 (0.2-1.3) mg/dL AST 47 H (14-36) IU/L ALT 42 H (<35) IU/L Alkaline Phosphatase 73 (38-126) U/L Total Protein 8.1 (6.3-8.2) g/dL Albumin 4.3 (3.5-5.0) g/dL Globulin 3.8 (1.7-4.1) g/dL Albumin/Globulin Ratio 1.1 (1.0-2.8) MDM Narrative Medical decision making narrative: CC: 27-year-old female with painless bright red blood per rectum Complicating co-morbidities: BMI 53 Data collected from: Patient Medical records reviewed: Prior notes reviewed in our EMR Differential considered, but not limited to: Hemorrhoid, diverticular bleed versus other Exam documented above, pertinent findings include: Heart rate regular, no palor or diaphoresis, abdomen is soft and nontender, internal hemorrhoid palpated, minimal bright red blood Lab Test results independently reviewed as above. Pertinent findings: No leukocytosis or left shift, no signs of anemia, electrolytes, renal function within normal, LFTs very slightly elevated, normal bilirubin and alk phos. Discussion: 27-year-old female with painless bright red bleeding per rectum for the past few days. No systemic complaints, lab work is very reassuring and there is a small minimally bleeding internal hemorrhoid noted on exam. Disposition: see below, along with detailed discharge instructions that have been reviewed with patient as well as indications for ED re-evaluation and additional outpatient follow up Discharge Plan Departure Patient Disposition: Home Clinical Impression: Hemorrhoid Instructions: DI for Hemorrhoids Activity Restrictions/Additional Instructions: *You have been diagnosed with [internal hemorrhoid ] *What to do: *Please take over the counter hemorrhoid medications *Please follow up with your primary care provider in 2-3 days, call for an appointment. Let them know you were seen in the Emergency Department and that we ask that you be seen in follow up. We will electronically transmit a record of today's note if your PCP is in our system *If you do not have a primary care provider please contact the [facility] Resource line at [phone]. They will ask some questions about your medical history and help get you set up with a doctor in the community. *Return to Emergency Department if you should have any new, worsening or concerning symptoms, such as [fever greater than 101 F, shaking chills, worsening pain, persistent vomiting or other bothersome symptoms] Prescriptions: No Action methylphenidate HCl 10 mg tablet Patient Comments: Take 0.5 Tablets by mouth three times a day. rizatriptan 10 mg tablet Patient Comments: TAKE 1 TABLET BY MOUTH NEEDED FOR MIGRAINE FOR UP TO 30 DOSES. MAY REPEAT IN 2 HOURS IF NEEDED MAX OF 2 TABLETS PER DAY hydroxyzine pamoate 50 mg capsule Patient Comments: TAKE 1 CAPSULE BY MOUTH THREE TIMES A DAY NEEDED FOR ANXIETY. lamotrigine 25 mg tablet losartan 25 mg tablet gabapentin 300 mg capsule fluticasone propionate 220 mcg/actuation HFA aerosol inhaler INHALATION Patient Comments: Inhale 2 Puffs by mouth twice daily. albuterol sulfate 90 mcg/actuation HFA aerosol inhaler INHALATION Patient Comments: INHALE 1-2 Puffs by mouth four times daily as needed for wheezing or shortness of breath. lamotrigine 100 mg tablet Referrals: Lyubov Sawant ARNP [Primary Care Provider] - Stand Alone Forms: Patient Portal/API
[2023-01-24 07:30] VITALS: BP 150/103; PULSE 85; PULSE 88; RESP 17; TEMP 36.8; O2SAT 97; O2SAT 98; BMI 53.1
[2023-01-24 07:47] LABS: Add Manual Diff / Slide Review NO; Basophils Absolute Auto 100 /uL (0-100); Basophils Percent Auto 1.2 % (0-2); Eosinophils Absolute Auto 700 /uL (0-450); Eosinophils Percent Auto 8.4 % (2-4); Hematocrit 44.8 % (36-46); Hemoglobin 15.7 g/dL (12.0-16.0); Lymphocytes Absolute Auto 3600 /uL (1100-4500); Lymphocytes Percent Auto 41.6 % (25-40); Mean Corpuscular HGB Conc 34.9 % (30-36); Mean Corpuscular Hemoglobin 30.4 PG (26-34); Mean Corpuscular Volume 86.9 fL (80-100); Monocytes Absolute Auto 400 /uL (0-900); Monocytes Percent Auto 4.6 % (3-14); Neutrophils Absolute Auto 3900 /uL (1500-7000); Neutrophils Percent Auto 44.2 % (50-75); Platelet Count 199 X10^3/uL (150-400); Red Blood Cell Count 5.16 X10^6/uL (4.0-5.2); Red Cell Distribution Width 13.3 % (11.6-14.8); White Blood Cell Count 8.7 X10^3/uL (4.5-11.0)
[2023-01-24 07:54] LABS: PTT Partial Thromboplastin Tim 32 SECONDS (26-36)
[2023-01-24 07:57] LABS: Alanine Aminotransferase 42 IU/L (<35); Albumin 4.3 g/dL (3.5-5.0); Albumin Globulin Ratio 1.1 (1.0-2.8); Alkaline Phosphatase 73 U/L (38-126); Aspartate Aminotransferase 47 IU/L (14-36); BUN Creatinine Ratio 16.9 (6-22); Bilirubin Total 0.9 mg/dL (0.2-1.3); Blood Urea Nitrogen 13 mg/dL (7-17); Carbon Dioxide 26 mmol/L (22-32); Chloride 105 mmol/L (98-107); Estimated Glomerular Filt Rate > 60 mL/min (>60); Globulin 3.8 g/dL (1.7-4.1); Glucose 94 mg/dL (70-100); HEMOLYSIS < 15 (0-50); Potassium 3.8 mmol/L (3.4-5.1); Sodium 138 mmol/L (137-145); Total Protein 8.1 g/dL (6.3-8.2)
[2023-01-24 08:00] VITALS: PULSE 69; O2SAT 97
== END 2023-01-24 08:36 | disposition home or self-care (01) ==
PROVIDERS: Emergency Provider Emergency Medicine; PCP Nurse Practitioner Family
DX: K64.8 Other hemorrhoids (principal)
CPT/HCPCS: 36415; 80053; 85025; 85610; 85730; 99283

== ENCOUNTER 2023-06-26 14:28 | Emergency (ER) | payer OTHER, MEDICAID, SELFPAY ==
[2023-06-26 14:30] VITALS: BP 178/102; PULSE 71; RESP 18; TEMP 36.4; O2SAT 98; BMI 53.1
--- NOTE | 2023-06-26 14:34 | DI.RAD.S_ITS ---
PROCEDURE: XR HAND RT MIN 3V INDICATIONS: punched a dumpster TECHNIQUE: 3 views of the hand(s) acquired. COMPARISON: None. FINDINGS: Bones: Acute boxer type fracture involving 5th metacarpal neck is seen with slight volar displacement and dorsal angulation at fracture site. Carpal bones are normally aligned. No suspicious bony lesions. Soft tissues: No suspicious soft tissue calcifications. IMPRESSION: Acute boxer type fracture involving right 5th metacarpal neck as above. Dictated by: Stephen Vasquez M.D. on 06/26/2023 at 15:20 Approved by: Stephen Vasquez M.D. on 06/26/2023 at 15:21
--- NOTE | 2023-06-26 15:55 | ED.GENADULT ---
HPI - General Adult General Chief complaint: Extremity Injury, Upper Stated complaint: RT HAND INJURY Time Seen by Provider: 06/26/23 15:51 Source: patient Mode of arrival: Ambulatory History of Present Illness HPI narrative: 27-year-old female stated that she got angry and went outside and punched a dumpster. Had immediate pain in her right hand afterwards. She does have some wrist discomfort but most of the pain is in the hand. No elbow discomfort. No other injuries from the event. Related Data Home Medications Medication Instructions Recorded Confirmed albuterol sulfate 90 mcg/actuation inhalation 01/24/23 aerosol inhaler fluticasone propionate 220 inhalation 01/24/23 mcg/actuation HFA aerosol inhaler gabapentin 300 mg capsule mg 01/24/23 hydroxyzine pamoate 50 mg capsule mg 01/24/23 lamotrigine 100 mg tablet mg 01/24/23 lamotrigine 25 mg tablet mg 01/24/23 losartan 25 mg tablet mg 01/24/23 methylphenidate HCl 10 mg tablet mg 01/24/23 rizatriptan 10 mg tablet mg 01/24/23 Allergies Allergy/AdvReac Type Severity Reaction Status Date / Time ketorolac [From Toradol] AdvReac Unknown Back Pain Verified 06/26/23 14:33 red dye AdvReac Verified 06/26/23 14:33 Review of Systems Musculoskeletal Musculoskeletal: Reports system reviewed and no additional complaints, except as documented Integumentary/Breasts Skin/Breast: Reports system reviewed and no additional complaints, except as documented Neurologic Neurologic: Reports system reviewed and no additional complaints, except as documented Patient History Medical History (Updated 06/26/23 @ 16:14 by Dale Otoole DO) Migraine Social History Smoking Status: Former smoker Smoking Status: Former smoker alcohol intake frequency: holidays/special occasions only Substance Use Type: marijuana Exam Initial Vital Signs Initial Vital Signs: Vital Signs Temperature 97.5 F L 06/26/23 14:30 Pulse Rate 71 06/26/23 14:30 Respiratory Rate 18 06/26/23 14:30 Blood Pressure 178/102 H 06/26/23 14:30 Pulse Oximetry 98 06/26/23 14:30 Oxygen Delivery Method Room Air 06/26/23 14:30 Const General: cooperative and comfortable Cardio Pulses: radial pulses present on the right Skin General: no rashes or lesions noted Neuro Sensory Exam: no sensory deficits noted Extrem Other: Discomfort with palpation along the ulnar portion of the hand along the 5th metacarpal. Procedures Orthopedic Splinting/Casting Injury #1: Side: right Upper Extremity Injury Location: hand Upper Extremity Immobilizer: ulnar gutter Post splinting neuro exam: intact Post splinting vascular exam: intact Placed by: Nursing Course Orders Ordered: ED Orders 06/26/23 14:34 XR hand RT min 3V Stat Vital Signs Vital signs: Vital Signs - 8 hr 06/26/23 14:30 Temperature 97.5 F L Pulse Rate 71 Respiratory Rate 18 Blood Pressure 178/102 H Pulse Oximetry 98 Oxygen Delivery Method Room Air Medical Decision Making Imaging Data Extremity x-ray #1: Radiologist's Impression: PROCEDURE:? XR HAND RT MIN 3V ? INDICATIONS:? punched a dumpster ? TECHNIQUE:? 3 views of the hand(s) acquired.? ? COMPARISON:? None. ? FINDINGS:? ? Bones:? Acute boxer type fracture involving 5th metacarpal neck is seen with slight volar displacement and dorsal angulation at fracture site.? Carpal bones are normally aligned.? No suspicious bony lesions.? ? Soft tissues:? No suspicious soft tissue calcifications.? ? ? IMPRESSION:? Acute boxer type fracture involving right 5th metacarpal neck as above. [facility] Narrative Medical decision making narrative: X-ray shows a 5th metacarpal fracture. Is consistent with her physical exam. She was placed in an ulnar gutter splint. She is neurovascularly intact. She was given care instructions and return precautions. She expressed understanding and agreement. Discharge Plan Departure Patient Disposition: Home Clinical Impression: Fracture of fifth metacarpal bone Instructions: How to Take Care of Your Splint, Hand Fracture Activity Restrictions/Additional Instructions: The splint that was placed today does need to be treated like a cast. You need to keep it on and keep it clean and keep it dry. Contact the orthopedic doctors at the number provided below for follow-up next week. Return to the emergency department for new or worsening symptoms. Prescriptions: No Action methylphenidate HCl 10 mg tablet Patient Comments: Take 0.5 Tablets by mouth three times a day. rizatriptan 10 mg tablet Patient Comments: TAKE 1 TABLET BY MOUTH NEEDED FOR MIGRAINE FOR UP TO 30 DOSES. MAY REPEAT IN 2 HOURS IF NEEDED MAX OF 2 TABLETS PER DAY hydroxyzine pamoate 50 mg capsule Patient Comments: TAKE 1 CAPSULE BY MOUTH THREE TIMES A DAY NEEDED FOR ANXIETY. lamotrigine 25 mg tablet losartan 25 mg tablet gabapentin 300 mg capsule fluticasone propionate 220 mcg/actuation HFA aerosol inhaler INHALATION Patient Comments: Inhale 2 Puffs by mouth twice daily. albuterol sulfate 90 mcg/actuation HFA aerosol inhaler INHALATION Patient Comments: INHALE 1-2 Puffs by mouth four times daily as needed for wheezing or shortness of breath. lamotrigine 100 mg tablet Referrals: Lyubov Sawant ARNP [Primary Care Provider] - Karen Levin MD [Physician] - Stand Alone Forms: Patient Portal/API
[2023-06-26 16:34] VITALS: BP 166/99; PULSE 69; RESP 18; O2SAT 97
== END 2023-06-26 16:33 | disposition home or self-care (01) ==
PROVIDERS: Emergency Provider Emergency Medicine; PCP Nurse Practitioner Family
DX: S62.306A Unspecified fracture of fifth metacarpal bone, right hand, initial encounter for closed fracture (principal); X58.XXXA Exposure to other specified factors, initial encounter
CPT/HCPCS: 29125; 73130; 99282; 99283

== ENCOUNTER 2023-07-02 11:09 | Emergency (ER) | payer OTHER, MEDICAID, SELFPAY ==
[2023-07-02 11:12] VITALS: BP 151/70; PULSE 73; RESP 16; TEMP 36.5; O2SAT 98; BMI 53.1
--- NOTE | 2023-07-02 11:31 | ED_ITS ---
HPI - Extremity Problem <Deirdre Recio PA-C - Last Filed: 07/02/23 11:37> General Chief complaint: Extremity Problem,Nontraumatic Stated complaint: R/ hand pain, broke it T-7 Time Seen by Provider: 07/02/23 11:12 Source: patient Mode of arrival: Ambulatory History of Present Illness HPI Narrative: Patient is a 27-year-old female who initially presented on 06/26 with right hand pain after punching a dumpster. She was diagnosed with a right 5th metacarpal neck fracture. She was placed in a ulnar gutter splint and discharged to follow up with Orthopedics. She presents today because her hand hurts. She reports going to work and working 8 hour shifts which have caused significant swelling in her hand. She is taking Tylenol for pain. She reports intermittent shooting nerve type pain up to her elbow. She is wearing the splint from the emergency room and has not unwrapped it. She endorses using ice but unclear how often. Related Data Home Medications Medication Instructions Recorded Confirmed albuterol sulfate 90 mcg/actuation inhalation 01/24/23 aerosol inhaler fluticasone propionate 220 inhalation 01/24/23 mcg/actuation HFA aerosol inhaler gabapentin 300 mg capsule mg 01/24/23 hydroxyzine pamoate 50 mg capsule mg 01/24/23 lamotrigine 100 mg tablet mg 01/24/23 lamotrigine 25 mg tablet mg 01/24/23 losartan 25 mg tablet mg 01/24/23 methylphenidate HCl 10 mg tablet mg 01/24/23 rizatriptan 10 mg tablet mg 01/24/23 Previous Rx's Medication Instructions Recorded acetaminophen 325 mg tablet 650 mg (2 x 325 mg) PO Q4H PRN 06/26/23 (Tylenol) pain #30 tabs ibuprofen 600 mg tablet 600 mg PO Q6H PRN pain #20 tabs 07/02/23 Allergies Allergy/AdvReac Type Severity Reaction Status Date / Time ketorolac [From Toradol] AdvReac Unknown Back Pain Verified 06/26/23 14:33 red dye AdvReac Verified 06/26/23 14:33 Review of Systems <Deirdre Recio PA-C - Last Filed: 07/02/23 11:37> Review of Systems ROS Unobtainable: All systems reviewed & are unremarkable except as noted in HPI and below Patient History <Deirdre Recio PA-C - Last Filed: 07/02/23 11:37> Medical History (Updated 07/11/23 @ 00:01 by ) Migraine Social History Smoking Status: Former smoker Smoking Status: Former smoker alcohol intake frequency: holidays/special occasions only Substance Use Type: marijuana Exam <Deirdre Recio PA-C - Last Filed: 07/02/23 11:37> Narrative Exam Narrative: GENERAL: 27 year old patient appears stated age. Well-developed patient, in no distress. NEURO: AOx3. HEAD: Atraumatic. Normocephalic. RESPIRATORY: No distress EXTREMITIES: Splint removed. Edema and ecchymosis of the ulnar half of the right hand. Patient endorses some tingling but has sensation in all fingers. Capillary refill 2 seconds. She can flex and extend fingers 3 through 5 with discomfort. No swelling at the wrist order more proximally. Radial pulse intact. painless flexion and extension of the wrist. Initial Vital Signs Initial Vital Signs: Vital Signs Temperature 97.7 F 07/02/23 11:12 Pulse Rate 73 07/02/23 11:12 Respiratory Rate 16 07/02/23 11:12 Blood Pressure 151/70 H 07/02/23 11:12 Pulse Oximetry 98 07/02/23 11:12 Oxygen Delivery Method Room Air 07/02/23 11:12 <Joe Yanez MD - Last Filed: 07/17/23 08:37> Initial Vital Signs Initial Vital Signs: Vital Signs Temperature 97.7 F 07/02/23 11:12 Pulse Rate 73 07/02/23 11:12 Respiratory Rate 16 07/02/23 11:12 Blood Pressure 151/70 H 07/02/23 11:12 Pulse Oximetry 98 07/02/23 11:12 Oxygen Delivery Method Room Air 07/02/23 11:12 Course <Deirdre Recio PA-C - Last Filed: 07/02/23 11:37> Vital Signs Vital signs: Vital Signs - 8 hr 07/02/23 11:12 Temperature 97.7 F Pulse Rate 73 Respiratory Rate 16 Blood Pressure 151/70 H Pulse Oximetry 98 Oxygen Delivery Method Room Air <Joe Yanez MD - Last Filed: 07/17/23 08:37> Vital Signs Vital signs: Vital Signs - 8 hr 07/02/23 11:12 Temperature 97.7 F Pulse Rate 73 Respiratory Rate 16 Blood Pressure 151/70 H Pulse Oximetry 98 Oxygen Delivery Method Room Air MDM - Extremity (Nontraumatic) <Deirdre Recio PA-C - Last Filed: 07/02/23 11:37> MDM Narrative Medical decision making narrative: Multiple etiologies for patient's symptoms considered including, but not limited to: Right 5th metacarpal neck fracture. Reviewed the x-ray and do not see additional fractures. After removal of splint, right hand assessed for circulation, sensation and capillary refill. Patient has significant bruising and edema but no new defect noted. She has an appointment tomorrow with orthopedics; has not been able to go because her insurance requires a paper prescription for the referral. 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 We replaced the splint and wrapped it lightly, we will give patient a sling to use to support her extremity when she needs to ambulate or at work. Prescribed ibuprofen to use as additional pain medication. Patient's symptoms improved over duration of stay with above-stated therapies. Findings and discharge diagnosis discussed with patient/family followed by verbalization of understanding Return precautions discussed with patient/family whom verbalize understanding of diagnosis and plan Discharge Plan Departure Patient Disposition: Home Clinical Impression: Fracture of fifth metacarpal bone Instructions: DI for Boxer's Fracture Activity Restrictions/Additional Instructions: *You have been diagnosed with a 5th metacarpal neck fracture also called a boxer's fracture. Your circulation is intact. We will replace the splint more loosely, give you a sling for support of your arm, and a prescription for ibuprofen for additional pain medicine. Make sure you take the sling off whenever you are able to to perform range of motion of your elbow and shoulder. Use the sling when you need to support your arm, like when you are at work. Do not sleep in the sling and do not leave it on 24 hours a day. Please follow up as scheduled with your primary care on 07/03 for a referral to Orthopedics on 07/03. *What to do: *Please continue to take your regular medications as directed. [x] New medication prescriptions sent to your pharmacy: [[facility]] [ ] New medication written as a paper prescription [ ] No new medications given *Please follow up with your primary care provider in 2-3 days, call for an appointment. Let them know you were seen in the Emergency Department and that we ask that you be seen in follow up. We will electronically transmit a record of today's note if your PCP is in our system *If you do not have a primary care provider please contact the [facility] Resource line at [phone]. They will ask some questions about your medical history and help get you set up with a doctor in the community. *Return to Emergency Department if you should have any new, worsening or concerning symptoms, such as [fever greater than 101 F, shaking chills, worsening pain, persistent vomiting or other concerning symptoms]. Prescriptions: New ibuprofen 600 mg tablet 600 mg PO Q6H PRN (Reason: pain) Qty: 20 0RF No Action acetaminophen [Tylenol] 325 mg tablet 650 mg PO Q4H PRN (Reason: pain) Qty: 30 0RF methylphenidate HCl 10 mg tablet Patient Comments: Take 0.5 Tablets by mouth three times a day. rizatriptan 10 mg tablet Patient Comments: TAKE 1 TABLET BY MOUTH NEEDED FOR MIGRAINE FOR UP TO 30 DOSES. MAY REPEAT IN 2 HOURS IF NEEDED MAX OF 2 TABLETS PER DAY hydroxyzine pamoate 50 mg capsule Patient Comments: TAKE 1 CAPSULE BY MOUTH THREE TIMES A DAY NEEDED FOR ANXIETY. lamotrigine 25 mg tablet losartan 25 mg tablet gabapentin 300 mg capsule fluticasone propionate 220 mcg/actuation HFA aerosol inhaler INHALATION Patient Comments: Inhale 2 Puffs by mouth twice daily. albuterol sulfate 90 mcg/actuation HFA aerosol inhaler INHALATION Patient Comments: INHALE 1-2 Puffs by mouth four times daily as needed for wheezing or shortness of breath. lamotrigine 100 mg tablet Referrals: Lyubov Sawant ARNP [Primary Care Provider] - Stand Alone Forms: Patient Portal/API ED Sign-out <Joe Yanez MD - Last Filed: 07/17/23 08:37> Cosign ED Attending Jaelyn Attestation: I was immediately available in the department for consultation. ?This documentation has been reviewed and I agree with assessment and plan. Supervised by Joe Yanez MD
== END 2023-07-02 11:38 | disposition home or self-care (01) ==
PROVIDERS: Emergency Provider Physician Assistant; PCP Nurse Practitioner Family
DX: S62.306A Unspecified fracture of fifth metacarpal bone, right hand, initial encounter for closed fracture (principal); W22.8XXA Striking against or struck by other objects, initial encounter
CPT/HCPCS: 99281; 99282